=== PATIENT | male | born 1965 | race Caucasian/White ===

== ENCOUNTER 2016-09-26 15:13 | Emergency (ER) | payer OTHER ==
[~2016-09-26] VITALS: Ht 190.5 cm; Wt 140.6 kg
[~2016-09-26 15:13] MED LIST: ALLOPURINOL300 M1 PO; BYSTOLIC 5MG5 MG PO; CHILDREN'S ASPI81 M1 PO; CIPRO 500MG TA500 MG PO; FISH OIL1000 MG PO; FLAG500 PO; LISINOPRIL10 MG PO; MASON NATURAL2000 IU PO; MEDROL4 MG PO; METFORMIN500 MG PO; NORVASC 5MG TAB5 MG PO; ONE DAILY MULT1 EAC2 PO; PATANASE0.6% NASB; PERCOCET 325 MG1 TA2 PO; PRILOSEC40 MG PO; PROTONIX 20MG T20 MG PO; SPIRONOLACTONE-HCTZ PO; SPIRONOLACTONE/1 TAB PO; TAMSULOSIN HYD0.4 MG PO; VALIUM5 M1 PO; ZOFRAN ODT4 MG PO
[2016-09-26 15:25] VITALS: BP 142/88
--- NOTE | 2016-09-26 17:37 | ED GENERAL ADULT ---
History of Present Illness General Chief Complaint: Abdominal Pain/Flank Pain Stated Complaint: KIDNEY PAIN PER PT, CONSTANT X 2DAYS HX OF STONES Source: patient Exam Limitations: no limitations Vital Signs & Intake/Output Vital Signs & Intake/Output Vital Signs Date Time Temp Pulse Resp B/P B/P Pulse O2 O2 Flow FiO2 Mean Ox Delivery Rate 09/26 1911 97 09/26 1525 97.7 73 18 142/88 97 Room Air Allergies Coded Allergies: NO KNOWN ALLERGIES (05/09/14) Reconcile Medications Allopurinol 300 MG TABLET 1 TAB PO DAILY KIDNEY STONES (Reported) Amlodipine Besylate 5 MG TABLET 1 TAB PO DAILY BP (Reported) Aspirin (Children's Aspirin) 81 MG TAB.CHEW 1 TAB PO DAILY HEART/BLOOD ( Reported) Diazepam (Valium) 5 MG TABLET 1 TAB PO DAILY pain Fluticasone Propionate 50 MCG/ACTUATION SPRAY.SUSP 2 SPRAY NASB DAILY ALLERGIES (Reported) Hydroxyzine HCl 25 MG TABLET 1 TAB PO QPM ANXIETY (Reported) Lidocaine (Lidoderm) 5 % ADH..PATCH 1 PAT TOP DAILY PRN pain may wear up to 12 hours Metformin HCl 500 MG TABLET 1 TAB PO QPM DM (Reported) Metoprolol Tartrate 50 MG TABLET 1 TAB PO BID HEART/BP (Reported) Multivitamin (One Daily Multivitamin) 1 EACH TABLET 1 TAB PO DAILY SUPPLEMENT (Reported) Naproxen (Naprosyn) 500 MG TABLET 1 TAB PO BID PRN pain Pantoprazole Sodium 20 MG TABLET.DR 1 TAB PO DAILY GI (Reported) Spironolact/Hydrochlorothiazid (Spironolactone-Hctz 25-25 Tab) 25 MG-25 MG TABLET 1 TAB PO DAILY BP (Reported) [XENDOCRINE] 1 CAP PO DAILY SUPPLEMENT (Reported) Triage Note: REPORTS RIGHT LOWER BACK PAIN. REPORTS HX OF KEDNEY STONES HOWEVER IT DOES NOT FEEL THE SAME ACCORDING TO HIM. DENIED ANY RECENT TRAUMA. Triage Nurses Notes Reviewed? yes HPI: 51-year-old male with a history of hypertension and nephrolithiasis presenting with right low back pain since yesterday morning. Reports waking up with sharp nonradiating right low back pain that is significantly worse with movement, better with rest. Has tried both Tylenol and Motrin without relief. No recent strenuous activity or trauma. States that this does not feel like his usual kidney stone pain. Denies fevers, IV drug use, urinary/bowel incontinence/ retention, saddle paresthesias. No numbness or paresthesias radiating to the lower extremities. Pt does endorse trace hematuria which he has had with prior kidney stones. (DI LESLIE PA-C) Past History Travel History Traveled to [place] past 21 day No Medical History Any Pertinent Medical History? 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 No (DI LESLIE PA-C) Review of Systems Review of Systems Constitutional: Reports: no symptoms. Respiratory: Reports: no symptoms. Cardiovascular: Reports: no symptoms. GI: Reports: no symptoms. Genitourinary: Reports: hematuria. Denies: dysuria, frequency, urgency. Musculoskeletal: Reports: back pain. Denies: joint pain, neck pain. Skin: Reports: no symptoms. Neurological/Psychological: Denies: numbness, paresthesia, tingling. (DI LESLIE PA-C) Physical Exam Physical Exam General Appearance: well developed/nourished, mild distress Head: atraumatic Respiratory: normal breath sounds, lungs clear Cardiovascular: regular rate/rhythm Gastrointestinal: normal bowel sounds, soft, non-tender Back: normal inspection, no vertebral tenderness, decreased range of motion secondary to pain, no CVA tenderness, positive tenderness to palpation over right lower back muscles with palpable muscle spasm, negative straight leg raise bilaterally Core Measures ACS in differential dx? No CVA/TIA Diagnosis: No Severe Sepsis Present: No Septic Shock Present: No (DI LESLIE PA-C) Progress Differential Diagnoses I considered the following diagnoses in my evaluation of the patient: [MSK strain versus ureteral lithiasis versus pyelonephritis or cystitis cauda equina versus epidural abscess] Plan of Care: Orders Procedure Date/time Status URINALYSIS 09/26 1733 Complete Laboratory Tests 09/26/16 1806: Urine Color YEL, Urine Clarity CLEAR, Urine pH 6.5, Ur Specific [place] 1.020, Urine Protein NEG, Urine Ketones NEG, Urine Nitrite NEG, Urine Bilirubin NEG, Urine Urobilinogen 0.2, Ur Leukocyte Esterase NEG, Ur Microscopic EXAM NOT REQUIRED, Urine Hemoglobin NEG, Urine Glucose NEG Urine shows no evidence of blood at this time. Exam grossly consistent with MSK strain. Low indication for CT scan at this time as there is no concern for renal stones. Patient had some pain relief after Toradol, Valium, Lidoderm patch. Will send home with prescriptions for all. Instructed to apply warm compresses to the area. (DI LESLIE PA-C) Initial ED EKG: none (DI LESLIE PA-C) Departure Departure Disposition: HOME OR SELF CARE Condition: Stable Clinical Impression Primary Impression: Low back pain Referrals: ANAYA FLOWERS,SHARON Real (PCP/Family) Additional Instructions: Take 500 mg of naproxen twice daily with a meal as needed for back pain. Take 5 mg of Valium before bedtime as needed for back pain. Use 1 Lidoderm patch to sore area once daily as needed for back pain. Apply warm compresses as needed. Follow-up with your primary care provider or reevaluation in 2 days. Return to the ED for any normal worsening symptoms. Departure Forms: Customer Survey General Discharge Information Prescriptions: Current Visit Scripts Naproxen (Naprosyn) 1 TAB PO BID PRN pain #60 TAB Diazepam (Valium) 1 TAB PO DAILY #7 TAB Lidocaine (Lidoderm) 1 PAT TOP DAILY PRN pain #30 PAT may wear up to 12 hours (DI LESLIE PA-C) PA/MULE DEVELOPER Co-Sign Statement Statement: ED Attending supervision documentation- [] I saw and evaluated the patient. I have also reviewed all the pertinent lab results and diagnostic results. I agree with the findings and the plan of care as documented in the PA's/MULE DEVELOPER's documentation. [X] I have reviewed the ED Record and agree with the PA's/MULE DEVELOPER's documentation. [] Additions or exceptions (if any) to the PAs/MULE DEVELOPER's note and plan are summarized below: [] (STARR FLOWERS,MARELY) Critical Care Note Critical Care Note Critical Care Time: non-applicable (DI LESLIE PA-C)
[2016-09-26] MEDS ORDERED: SPIRONOLACTONE1 EACH PO (18:29)
[2016-09-26] MEDS ORDERED: METOPROLOL TART50 M1 PO (18:30)
[2016-09-26] MEDS ORDERED: METFORMIN HCL500 M3 PO (18:30)
[2016-09-26] MEDS ORDERED: AMLODIPINE BESYL5 M1 PO (18:31)
[2016-09-26] MEDS ORDERED: FLUTICASONE PRO16 GM NASB (18:31)
[2016-09-26] MEDS ORDERED: HYDROXYZINE HCL25 M2 PO (18:31)
[2016-09-26] MEDS ORDERED: PANTOPRAZOLE SO20 M1 PO (18:31)
[2016-09-26] MEDS ORDERED: [UNRECOGNIZED DRUG - OTHER] PO (18:32)
[2016-09-26] MEDS ORDERED: NAPROSYN500 M1 PO (18:58)
[2016-09-26] MEDS ORDERED: LIDODERM1 EACH TOP (18:58)
[2016-09-26] MEDS ORDERED: VALIUM5 M2 PO (18:58)
[2016-09-27] MEDS ORDERED: ZOFRAN4 M2 PO (09:38)
[2016-09-27] MEDS ORDERED: DILAUDID2 M1 PO (09:38)
== END 2016-09-26 19:16 ==
LOC: ERH 15:13
DX: M54.5 Low back pain (principal)
CPT/HCPCS: 81003; 96372; J1885; J3360

== ENCOUNTER 2016-09-27 07:56 | Emergency (ER) | payer OTHER ==
[~2016-09-27] VITALS: Ht 190.5 cm; Wt 140.6 kg
[~2016-09-27 07:56] MED LIST changes: +AMLODIPINE BESYL5 M1 PO; +FLUTICASONE PRO16 GM NASB; +HYDROXYZINE HCL25 M2 PO; +LIDODERM1 EACH TOP; +METFORMIN HCL500 M3 PO; +METOPROLOL TART50 M1 PO; +NAPROSYN500 M1 PO; +PANTOPRAZOLE SO20 M1 PO; +SPIRONOLACTONE1 EACH PO; +VALIUM5 M2 PO; +[UNRECOGNIZED DRUG - OTHER] PO
--- NOTE | 2016-09-27 08:21 | ED GI/GU/ABDOMINAL COMPLAINT ---
History of Present Illness General Chief Complaint: Abdominal Pain/Flank Pain Stated Complaint: KIDNEY STONE PAIN Source: patient Exam Limitations: no limitations Vital Signs & Intake/Output Vital Signs & Intake/Output Vital Signs Date Time Temp Pulse Resp B/P B/P Pulse O2 O2 Flow FiO2 Mean Ox Delivery Rate 09/27 0804 97.1 92 18 144/91 97 Room Air Allergies Coded Allergies: NO KNOWN ALLERGIES (05/09/14) Reconcile Medications Allopurinol 300 MG TABLET 1 TAB PO DAILY KIDNEY STONES (Reported) Amlodipine Besylate 5 MG TABLET 1 TAB PO DAILY BP (Reported) Aspirin (Children's Aspirin) 81 MG TAB.CHEW 1 TAB PO DAILY HEART/BLOOD ( Reported) Diazepam (Valium) 5 MG TABLET 1 TAB PO DAILY pain Fluticasone Propionate 50 MCG/ACTUATION SPRAY.SUSP 2 SPRAY NASB DAILY ALLERGIES (Reported) Hydromorphone HCl (Dilaudid) 2 MG TABLET 1 TAB PO BIDP PRN PAIN Hydroxyzine HCl 25 MG TABLET 1 TAB PO QPM ANXIETY (Reported) Lidocaine (Lidoderm) 5 % ADH..PATCH 1 PAT TOP DAILY PRN pain may wear up to 12 hours Metformin HCl 500 MG TABLET 1 TAB PO QPM DM (Reported) Metoprolol Tartrate 50 MG TABLET 1 TAB PO BID HEART/BP (Reported) Multivitamin (One Daily Multivitamin) 1 EACH TABLET 1 TAB PO DAILY SUPPLEMENT (Reported) Naproxen (Naprosyn) 500 MG TABLET 1 TAB PO BID PRN pain Ondansetron HCl (Zofran) 4 MG TABLET 1 TAB PO Q6-8P PRN NAUSEA Pantoprazole Sodium 20 MG TABLET.DR 1 TAB PO DAILY GI (Reported) Spironolact/Hydrochlorothiazid (Spironolactone-Hctz 25-25 Tab) 25 MG-25 MG TABLET 1 TAB PO DAILY BP (Reported) [XENDOCRINE] 1 CAP PO DAILY SUPPLEMENT (Reported) Triage Note: PT STATES THAT HE HAS HISTORY OF KIDNEY STONES AND THAT HE HAS BEEN HAVING R SIDE FLANK PAIN THAT WOKE HIM OUT OF SLEEP. PAIN HAS BEEN CONSTANT SINCE MONDAY. Triage Nurses Notes Reviewed? yes Onset: Gradual Duration: getting worse Timing: recent history Quality/Severity: sharpness, severe, stabbing Severity Numbers: 10 Location: right flank Radiation: groin HPI: Patient is a 51-year-old male with a past medical history of kidney stones and hypertension who presents emergency room with a three-day history of intermittent waxing and waning right flank pain with radiation to groin. Patient was evaluated yesterday here at [facility] emergency room for concerns of similar pain where urine analysis was unremarkable patient was given ketorolac with relief of symptoms however patient returns with worsening pain and episodes today of nonbloody nonbilious emesis. Patient denies any chest pain and arm pain jaw pain dysuria hematuria testicular swelling or pain. (VINAYAK LOCKHART) Past History Travel History Traveled to [place] past 21 day No Medical History Any Pertinent Medical History? 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 No (VINAYAK LOCKHART) Review of Systems Review of Systems Constitutional: Reports: no symptoms. EENTM: Reports: no symptoms. Respiratory: Reports: no symptoms. Cardiovascular: Reports: no symptoms. GI: Reports: see HPI, abdominal pain. Genitourinary: Reports: no symptoms. Musculoskeletal: Reports: no symptoms. Skin: Reports: no symptoms. Neurological/Psychological: Reports: no symptoms. Hematologic/Endocrine: Reports: no symptoms. Immunologic/Allergic: Reports: no symptoms. All Other Systems: Reviewed and Negative (VINAYAK LOCKHART) Physical Exam Physical Exam General Appearance: moderate distress, obese Gastrointestinal: normal bowel sounds, soft, RIGHT FLANK POINT TENDERNESS Comments: HEENT: Normal EENT exam Neck: Supple, no lymphadenopathy, normal range of motion without pain or tenderness Back: Nontender, no CVA tenderness. Cardiovascular: Regular rate and rhythms no murmurs rubs or gallops, normal JVP Respiratory: Chest nontender. No respiratory distress.breath sounds clear to auscultation bilaterally Extremity: No edema, no calf tenderness to palpation, normal and equal pulses. Neuro: Alert oriented x3, motor sensory normal, Skin: No appreciable rash on exposed skin, skin is warm and dry. Psych: Mood and affect is normal, memory and judgment is normal. Core Measures ACS in differential dx? No Severe Sepsis Present: No Septic Shock Present: No (VINAYAK LOCKHART) Progress Differential Diagnosis: AAA, AMI, appendicitis, biliary colic, bowel obstruction , colon cancer, cholecystitis, diverticulitis, epididymitis, esophageal varices, gastritis, hepatitis, hernia, hemorrhoids, ischemic bowel, inflamm bowel dis, Lizbet-Simona tear, orchitis, pancreatitis, prostatitis, peptic ulcer, PUD/GERD, perforated viscous, pyelonephritis, SBO, testicular torsion, ureterolithiasis, urinary retention, urethritis, UTI/pyelo Plan of Care: Orders Procedure Date/time Status COMPREHENSIVE METABOLIC PANEL 09/27 825 Complete CBC WITHOUT DIFFERENTIAL 09/27 825 Complete URINALYSIS 09/27 806 Active Laboratory Tests 09/27/16 0835: Anion Gap 9, Estimated GFR > 60, BUN/Creatinine Ratio 23.3, Glucose 129 H, Calcium 9.7, Total Bilirubin 1.2, AST 46, ALT 66, Alkaline Phosphatase 70, Total Protein 7.0, Albumin 4.1, Globulin 2.9, Albumin/Globulin Ratio 1.4, CBC w Diff NO MAN DIFF REQ, RBC 5.54, MCV 90.7, MCH 30.7, RDW 13.7, MPV 6.6 L, Gran % 64.0 , Lymphocytes % 24.9, Monocytes % 8.4, Eosinophils % 2.3, Basophils % 0.4, Absolute Granulocytes 4.0, Absolute Lymphocytes 1.6, Absolute Monocytes 0.5, Absolute Eosinophils 0.1, Absolute Basophils 0, PUBS MCHC 33.9 Patient currently is showing distress Evaluation of patient's CT scans in the past showed no ureteral stone and only showing stones in the renal pelvis. they requested further evaluation for concerns of kidney stone. I discussed risks and benefits and which they will proceed with CT scan. 09/27/2016 9:39:29 AM patient had significant resolution of flank pain no ureteral stones noted at this time discussed CT scan results with patient. Patient had complete resolution of nausea was able tolerate by mouth upon discharge. He was given COPIES of CT scan and labs prior to discharge. Upon discharge patient looks well no apparent distress and will comply with discharge instructions and had no questions. (VINAYAK LOCKHART) Diagnostic Imaging: Viewed by Me: CT Scan. Radiology Impression: SEE COMMENTS Initial ED EKG: none Comments: PATIENT: JANES FAUSTIN PRESENT AGE: 51 PATIENT ACCOUNT NO: [id number] : 67 LOCATION: [facility] ORDERING PHYSICIAN: VINAYAK JACKSON SERVICE DATE: 09/27/16 EXAM TYPE: CAT - CT ABD & PELVIS W/O IV CONTRAS EXAMINATION: CT ABDOMEN AND PELVIS WITHOUT CONTRAST CLINICAL INFORMATION: Right-sided flank pain. COMPARISON: 05/09/2014. TECHNIQUE: Multidetector volumetric imaging was performed from the superior aspect of the liver through the pubic symphysis. Sagittal and coronal reformatted images were obtained on the technologist's workstation. DLP: 1587 mGy-cm FINDINGS: Lung bases are clear. There are single tiny punctate bilateral renal calculi in the midpoles. No ureteral calculi or hydroureteronephrosis is seen. Right-sided calculus is new compared with the previous, left appears largely unchanged. There is a 3 cm left renal cyst slightly larger than the previous exam in the mid to upper pole. Otherwise no focal renal lesions are seen. The adrenal glands are normal appearing. There is mild diffuse hepatic steatosis. Spleen is mildly enlarged at 14-15 cm maximal longitudinal dimension with a small splenule at the hilum. Pancreas gallbladder and biliary tree appear unremarkable. Stomach and included bowel loops appear unremarkable including a normal-appearing retrocecal appendix. Mild stranding along the mid descending colon has resolved with no definite diverticula identified. Urinary bladder is collapsed limiting evaluation. There is no evidence of bladder calculi. Prostate appears upper limits normal to mildly enlarged with a single macrocalcification. There are small periumbilical and left inguinal hernias containing only mesenteric fat. Osseous structures appear unremarkable. IMPRESSION: 1. Bilateral nephrolithiasis without evidence of ureteral calculi or hydroureteronephrosis. 2. Small cyst left kidney slightly increased in size. 3. Mild splenomegaly. 4. Small periumbilical and left inguinal hernias. (SHIVA JACKSON,VINAYAK) Departure Departure Disposition: HOME OR SELF CARE Condition: Stable Clinical Impression Primary Impression: Kidney stone Referrals: ANAYA FLOWERS,SHARON Real (PCP/Family) Additional Instructions: As discussed if symptoms worsen return to emergency room. Continue your previously prescribed medications and begin the prescription of Dilaudid for breakthrough pain and Zofran for future nausea. Please follow-up with your professional system administrator and/or your urologist this week if symptoms continue. Please provide copies TO THEM of blood work and CT scan for further evaluation. Departure Forms: Customer Survey General Discharge Information Prescriptions: Current Visit Scripts Ondansetron HCl (Zofran) 1 TAB PO Q6-8P PRN NAUSEA #15 TAB Hydromorphone HCl (Dilaudid) 1 TAB PO BIDP PRN PAIN #8 TAB (VINAYAK LOCKHART) PA/X RAY TECHNOLOGIST Co-Sign Statement Statement: ED Attending supervision documentation- [] I saw and evaluated the patient. I have also reviewed all the pertinent lab results and diagnostic results. I agree with the findings and the plan of care as documented in the PA's/X RAY TECHNOLOGIST's documentation. [X] I have reviewed the ED Record and agree with the PA's/X RAY TECHNOLOGIST's documentation. [] Additions or exceptions (if any) to the PAs/X RAY TECHNOLOGIST's note and plan are summarized below: [] (STARR FLOWERS,MARELY)
[2016-09-27 08:44] LABS: ABSOLUTE BASOPHIL COUNT 0 /CUMM (0.0-0.2); ABSOLUTE EOSINOPHIL COUNT 0.1 /CUMM (0.0-0.7); ABSOLUTE LYMPH COUNT 1.6 /CUMM (1.2-3.4); ABSOLUTE MONOCYTE COUNT 0.5 /CUMM (0.10-0.60); BASOPHIL % 0.4 % (0.0-2.0); EOSINOPHIL % 2.3 % (0-5); HEMATOCRIT 50.3 % (42-52); MEAN CORPUSCULAR HGB 30.7 PG (27.0-31.0); MEAN CORPUSCULAR HGB CONC 33.9 G/DL (33.0-37.0); MEAN CORPUSCULAR VOLUME 90.7 FL (80.0-94.0); MEAN PLATELET VOLUME 6.6 FL (7.4-10.4); PLATELET COUNT 226 /CUMM (130-400); RBC DISTRIBUTION WIDTH 13.7 % (11.5-14.5); RED BLOOD CELL CT 5.54 /CUMM (4.70-6.10); WHITE BLOOD CELL COUNT 6.3 /CUMM (4.8-10.8)
--- NOTE | 2016-09-27 09:16 | CT SCAN REPORT ---
EXAMINATION: CT ABDOMEN AND PELVIS WITHOUT CONTRAST CLINICAL INFORMATION: Right-sided flank pain. COMPARISON: 05/09/2014. TECHNIQUE: Multidetector volumetric imaging was performed from the superior aspect of the liver through the pubic symphysis. Sagittal and coronal reformatted images were obtained on the technologist's workstation. DLP: 1587 mGy-cm FINDINGS: Lung bases are clear. There are single tiny punctate bilateral renal calculi in the midpoles. No ureteral calculi or hydroureteronephrosis is seen. Right-sided calculus is new compared with the previous, left appears largely unchanged. There is a 3 cm left renal cyst slightly larger than the previous exam in the mid to upper pole. Otherwise no focal renal lesions are seen. The adrenal glands are normal appearing. There is mild diffuse hepatic steatosis. Spleen is mildly enlarged at 14-15 cm maximal longitudinal dimension with a small splenule at the hilum. Pancreas gallbladder and biliary tree appear unremarkable. Stomach and included bowel loops appear unremarkable including a normal-appearing retrocecal appendix. Mild stranding along the mid descending colon has resolved with no definite diverticula identified. Urinary bladder is collapsed limiting evaluation. There is no evidence of bladder calculi. Prostate appears upper limits normal to mildly enlarged with a single macrocalcification. There are small periumbilical and left inguinal hernias containing only mesenteric fat. Osseous structures appear unremarkable. IMPRESSION: 1. Bilateral nephrolithiasis without evidence of ureteral calculi or hydroureteronephrosis. 2. Small cyst left kidney slightly increased in size. 3. Mild splenomegaly. 4. Small periumbilical and left inguinal hernias.
[2016-09-27] MEDS ORDERED: ZOFRAN4 M2 PO (09:38)
[2016-09-27] MEDS ORDERED: DILAUDID2 M1 PO (09:38)
[2016-09-27 09:50] VITALS: BP 132/74
== END 2016-09-27 09:51 ==
LOC: ERH 07:56
PROVIDERS: Physician Assistant
DX: N20.0 Calculus of kidney (principal)
CPT/HCPCS: 74176; 96361; 96374; 96375; J2405